=== PATIENT | female | born 1980 | race Caucasian/White ===

== ENCOUNTER 2022-05-09 18:01 | Inpatient (IN) | payer MEDICAID, SELFPAY ==
[2022-05-09] VITALS (7 sets, daily range): BP systolic 125–141; BP diastolic 74–82; PULSE 68–89; RESP 16; TEMP 36.6; O2SAT 98; BMI 37.5
--- NOTE | 2022-05-09 19:39 | PM.OBHPLI ---
OB - H&P: HPI Labor/Induction History of Present Illness Time Seen by Provider: 19:39 Date Seen: 05/09/22 Chief Complaint: The patient is a 41 year old 4 para 3 at 38+0 weeks gestation by 13w US, who presents for IOL for chronic hypertension. Chief complaint: Induction for Chronic HTN Narrative: Isabelle Bedoya is a 41 year old female 4 para 3 at 38+0 weeks gestation by 13w US, who presents for IOL for chronic hypertension. Blood pressures have been well controlled throughout on labetalol. also complicated by AMA. Patient had a normal Level 2 US at 22 weeks. NIPT was low risk. Most recent growth US showed EFW 73rd percentile at 36 weeks. She had normal pre-eclampsia labs most recently 05/02/22. Today she c/o cough present for a few days. No significant congestion or sore throat. No fever/chills/sweats. Labs Blood type: O (+) positive Rubella: immune RPR/VDLR: nonreactive GBS status: negative HBsAG: negative Review of Systems Status of ROS: Reports: 10 or more systems reviewed and unremarkable except as noted in History and below Meds Home Medications and Allergies Home Medications Medication Instructions Recorded Confirmed Type labetalol 100 mg tablet mg 05/09/22 History Allergies Allergy/AdvReac Type Severity Reaction Status Date / Time No Known Drug Allergies Allergy Verified 05/09/22 19:54 OB - H&P: Exam Physical Exam: Vital signs: Temp Pulse Resp BP Pulse Ox 98 F 79 16 125/80 98 05/09/22 18:20 05/09/22 19:37 05/09/22 18:20 05/09/22 19:37 05/09/22 18:22 Constitutional: Constitutional: no acute distress Comments: Alert, oriented and appropriate. Routine HEENT Exam: Head: Present atraumatic and normocephalic Eye: Absent conjunctival injection ENT: Present mucous membranes moist, normal external ear exam and nares patent Comments: Eyes without conjugate movement. Patient baseline. Routine Neck Exam: Comments: Supple. Routine Respiratory Exam: Respiratory: Present CTA bilaterally; Absent crackles, rales, rhonchi or respiratory distress Comments: Occasional cough. Routine Cardiovascular Exam: Cardiovascular: RRR Comments: No murmur, rub or extra heart sounds. Detailed Abdominal Exam: Comments: Gravid. Soft, non-tender. Detailed Labor and Delivery Exam: Patient Gravid: yes Dilation (cm): 2 Effacement (%): 70 Cervix position: posterior Consistency: medium Contraction duration (sec): 0 Fetus (Single): Station: -3 Heart Rate Baseline: 135 Monitor Accelerations: Present Monitor Decelerations: None Fourdrinier Machine Operator Variability: Moderate (6-25) Routine Extremities Exam: Extremities: Present full ROM, normal capillary refill and normal inspection; Absent pedal edema Routine Skin Exam: Present intact; Absent rash Routine Neurological Exam: Present alert and oriented X3 Comments: Grossly normal strength and sensation. No focal deficits. Routine Psychiatric Exam: Present normal affect OB - Problem Based A/P Additional Plan (1) Term : Status: Acute Plan: - IOL for chronic hypertension. Cook catheter placed. Initiate pitocin at midnight. (2) Chronic hypertension affecting : Status: Acute Plan: - Continue labetalol - BPs well-controlled throughout . Normal today - Normal pre-eclampsia labs on 05/02/22. Repeat if elevated blood pressures. (3) AMA (advanced maternal age) multigravida 35+: Status: Acute
[2022-05-09 20:26] LABS: SARS PCR* Negative SARS-CoV-2 (Negative)
--- NOTE | 2022-05-09 22:08 | PM.OBPNL ---
Subjective Time Seen by Provider: 22:08 Date Seen: 05/09/22 Narrative: I was called in to evaluate the patient as RN noticed skinny vaginal bleeding with the cook catheter. Noted on the patient's pad. No active bleeding. Upon my arrival, patient notes low abdominal and back pain with contractions; no pain between contractions. No vaginal pain. Objective Exam: GEN: Well-appearing adult female. Alert, oriented and appropriate. Stopping to breathe during contractions. Abdomen: Soft between contractions, non-tender. Vital Signs: Last Vital Signs Temp 98 F 05/09/22 19:37 Pulse 72 05/09/22 21:35 Resp 16 05/09/22 19:37 BP 134/80 05/09/22 21:35 Pulse Ox 98 05/09/22 18:22 Pelvic Exam Dilation (cm): 3 Effacement (%): 80 Station: -3 Contractions Contraction Frequency: Q 3-5 mins Assessment Station: -3 Heart Rate Baseline: 135 Mcfp Variability: Moderate (6-25) Monitor Accelerations: Present Monitor Decelerations: None Plan Plan: Cook catheter was removed. A small clot was noted at the base of the interior balloon. Given Aguilera score is now 8, proceed with pitocin induction.
[2022-05-09] MEDS: LACTATED RINGERS 1000 ML 1,000 ML 125 ML IV (22:57)
[2022-05-09] MEDS: OXYTOCIN 30 unit/500 ML in NS 30 UNIT/500 ML BAG IVPB (22:59)
[2022-05-09] MEDS: LABETALOL HCL 100 MG TABLET PO (23:09)
[2022-05-09] MEDS: hydrOXYzine pamoate 25 MG CAPSULE 100 MG PO (23:13)
[2022-05-09] MEDS: MORPHINE 10 MG/ML inj IM (23:14)
[2022-05-09 23:26] LABS: Basophils Absolute Auto 0.02 K/uL (0.00-0.30); Basophils Percent Auto 0.2 % (0.0-3.0); Eosinophils Absolute Auto 0.06 K/uL (0.00-0.50); Eosinophils Percent Auto 0.7 % (0.0-7.0); Hematocrit 35.1 % (33.0-51.0); Immature Granulocytes Abs Auto 0.02 K/uL (0.00-0.30); Immature Granulocytes Pct Auto 0.2 %; Lymphocytes Absolute Auto 2.27 K/uL (0.90-2.90); Lymphocytes Percent Auto 26.9 % (20-44); Mean Corpuscular HGB Conc 34 gm/dL (32-36); Mean Corpuscular Hemoglobin 31 pg (26-34); Mean Corpuscular Volume 91 fL (80-100); Monocytes Percent Auto 7.3 % (0.0-11.0); Neutrophils Absolute Auto 5.45 K/uL (1.7-7.0); Neutrophils Percent Auto 64.7 % (42.0-72.0); Platelet Count* 293 K/uL (140-440); RDW Coefficient of Variation % 12.9 % (11.5-15.5); Red Blood Count 3.84 m/uL (4.00-5.20); White Blood Count* 8.44 K/uL (4.50-11.00)
[2022-05-09 23:32] LABS: Slide Review Reflex No
[2022-05-10] VITALS (60 sets, daily range): BP systolic 104–187; BP diastolic 55–104; PULSE 66–86; RESP 16–18; TEMP 36.6–37.2; O2SAT 96–99
[2022-05-10] MEDS: LIDOCAINE 2% (PF) 5 ML VIAL EPIDURAL (05:05)
[2022-05-10] MEDS: ROPIVACAINE 0.2% 100 ml 100 ML 12 MG EPIDURAL (05:05)
--- NOTE | 2022-05-10 05:11 | P.ANBPRC_ITS ---
[facility] Social History Smoking Status: Never smoker Meds Home Medications and Allergies Home Medications Medication Instructions Recorded Confirmed Type labetalol 100 mg tablet 100 mg PO Q12H 05/09/22 05/09/22 History Allergies Allergy/AdvReac Type Severity Reaction Status Date / Time No Known Drug Allergies Allergy Verified 05/09/22 19:54 Results Labs Labs: Laboratory Results - last 24 hr 05/09/22 05/09/22 05/09/22 19:23 22:55 22:55 WBC 8.44 RBC 3.84 L Hgb 12.0 Hct 35.1 MCV 91 MCH 31 MCHC 34 RDW Coeff of Dilshad 12.9 Plt Count 293 Neut % (Auto) 64.7 Lymph % (Auto) 26.9 [place] % (Auto) 7.3 Eos % (Auto) 0.7 Baso % (Auto) 0.2 Neut # (Auto) 5.45 Lymph # (Auto) 2.27 [place] # (Auto) 0.60 Eos # (Auto) 0.06 Baso # (Auto) 0.02 Abs Immat Gran (auto) 0.02 Imm/Tot Granulo (auto) 0.2 SARS-CoV-2 (PCR) Negative SARS-CoV-2 Blood Type O Positive Antibody Screen NEGATIVE Vital Signs Vital Signs: Last Vital Signs Temp 98.5 F 05/10/22 02:13 Pulse 68 05/10/22 05:11 Resp 16 05/10/22 02:13 BP 152/91 H 05/10/22 05:11 Pulse Ox 98 05/10/22 05:10 Weight: 96.162 kg Height: 160.02 cm Anesthesia Procedures Epidural Insertion Patient Location: OB Start Time: 04:40 Stop Time: 05:15 Start Date: 05/10/22 Stop Date: 05/10/22 Reason for Block: primary anesthetic Patient Position: sitting Performed By: Phillip Cloud Preanesthetic Checklist: IV checked, risks and benefits discussed, surgical consent, monitors and equipment checked, pre-op evaluation, timeout performed and anesthesia consent Prep: chlorhexidine gluconate Monitoring: blood pressure monitoring, cardiac rehabilitation specialist, continuous pulse oximetry and heart rate Approach: midline Vertebral Space: lumbar (1-5) Needle Type: Tuohy needle Injection Technique: continuous catheter (catheter) Needle gauge: 17 Needle Length (cm): 10 cm Needle Insertion Depth (cm): 5 Catheter Gauge: 19 Catheter Type: multi-orifice Catheter at skin depth (cm): 10 Test Dose Result: negative and lidocaine 1.5% with epinephrine 1 to 200,000
[2022-05-10] MEDS: LACTATED RINGERS 1000 ML 1,000 ML 999 ML IV (05:12)
[2022-05-10] MEDS: LACTATED RINGERS 1000 ML 1,000 ML 125 ML IV (08:52)
[2022-05-10] MEDS: LABETALOL HCL 100 MG TABLET PO ×2 (10:10→21:17)
[2022-05-10] MEDS: LIDOCAINE 1% MDV 20 ML INJECTION (11:15)
--- NOTE | 2022-05-10 11:50 | PM.OBPRCVD ---
Procedure Delivery date: 05/10/22 Procedure Done: Global Procedure Details: Patient presented for IOL for chronic hypertension. Initially cervix was 2/70/-3. Cook catheter was placed at 1915. Subsequently removed at 2157 due to skinny vaginal bleeding. Some oozing, suspected cervical source, after removal, eventually stopped without addtional intervention. Found to be 3 cm after cook removal, transitioned to IV pitocin. Patient requested epidural, and this was placed at 0500 on 05/10/22. Patient slept. Found to be complete with bulging bag at 1000. AROM for clear fluid at 1050. Pushing began 1054. At 1108 vigorous female infant was delivered in the SACHI position and placed on the maternal chest. There was active management of the third stage with pitocin. Placental delivered spontaneously at 1113, 3V and intact. Second degree perineal and periurethral tear were repaired with 3-0 vicryl suture. APGARS 8 and 9. Mother and baby resting comfortably. OB Vag Delivery Procedures Additional Procedures Cook Catheter Insertion: Yes Laceration Repair: Yes
[2022-05-10] MEDS: IBUPROFEN 600 MG TABLET PO ×2 (12:58→21:16)
[2022-05-10] MEDS: SODIUM CHLORIDE 0.9 % (FLUSH) 10 ML SYRINGE IVF (12:58)
[2022-05-10] MEDS: ACETAMINOPHEN 500 MG TABLET 1000 MG PO (18:10)
[2022-05-11] MEDS: ACETAMINOPHEN 500 MG TABLET 1000 MG PO (00:31)
[2022-05-11 00:41] VITALS: BP 113/69; PULSE 66; RESP 16; TEMP 36.6; O2SAT 96
[2022-05-11 04:00] VITALS: BP 125/79; PULSE 55; RESP 16; TEMP 36.3; O2SAT 96
[2022-05-11 04:09] VITALS: TEMP 36.3
[2022-05-11] MEDS: IBUPROFEN 600 MG TABLET PO (04:09)
[2022-05-11 07:31] LABS: Hemoglobin* 10.9 gm/dL (12.0-16.0)
[2022-05-11 07:55] VITALS: BP 118/77; PULSE 63; RESP 14; TEMP 36.6; O2SAT 97
[2022-05-11] MEDS: DOCUSATE SODIUM 100 MG CAPSULE PO (08:43)
[2022-05-11] MEDS: LABETALOL HCL 100 MG TABLET PO (08:43)
--- NOTE | 2022-05-11 10:54 | PM.OBDSVD1 ---
DS: Providers Provider Time Seen by Provider: 10:54 Date Seen: 05/11/22 Date of admission: 05/09/22 18:01 Primary care physician: Elsy Mcallister MD Admitting Clinician: Elsy Mcallister MD Attending Physician on discharge: Elsy Mcallister MD Date of Discharge: 05/11/22 DS: Diagnosis Discharge Diagnosis (1) Term : Status: Acute (2) Chronic hypertension affecting : Status: Acute Problem details: - blood pressures have been well controlled. Continue labetalol 100 mg b.i.d. while . (3) AMA (advanced maternal age) multigravida 35+: Status: Acute Exam Narrative: Exam Narrative: General: Well-appearing adult female. Alert, oriented and appropriate. No acute distress. HEENT: Non conjugated gaze, patient baseline. No conjunctival injection. No nasal discharge. Mucous membranes moist. Neck: Supple. Cardiovascular: Regular rate and rhythm, no rubs, murmurs or extra heart sounds. Pulmonary: Clear to auscultation bilaterally. No wheezes, rales or rhonchi. Cough observed. Abdomen: Soft, nontender, nondistended. Uterine fundus palpated at the umbilicus. Extremities: Warm and well perfused. No lower extremity edema. Neuro: Grossly normal strength and sensation. No focal deficits. Psych: Normal affect. Const: Vital Signs, click to edit/add: Vital Signs - 24 hr 05/10/22 10:57 05/10/22 11:26 05/10/22 11:41 Temperature Pulse Rate 83 83 82 Pulse Rate [Left B lood Pressure Cuff ] Pulse Rate [Pulse Oximeter] Respiratory Rate Blood Pressure 141/85 H 144/79 H 132/72 Blood Pressure [Le ft Arm] Blood Pressure [Ri ght Arm] Pulse Oximetry Oxygen Delivery Me thod 05/10/22 11:56 05/10/22 12:11 05/10/22 12:26 Temperature Pulse Rate 77 71 71 Pulse Rate [Left B lood Pressure Cuff ] Pulse Rate [Pulse Oximeter] Respiratory Rate Blood Pressure 148/77 H 139/74 151/80 H Blood Pressure [Le ft Arm] Blood Pressure [Ri ght Arm] Pulse Oximetry Oxygen Delivery Me thod 05/10/22 12:41 05/10/22 12:56 05/10/22 13:11 Temperature Pulse Rate 67 81 71 Pulse Rate [Left B lood Pressure Cuff ] Pulse Rate [Pulse Oximeter] Respiratory Rate Blood Pressure 148/81 H 147/90 H 156/85 H Blood Pressure [Le ft Arm] Blood Pressure [Ri ght Arm] Pulse Oximetry Oxygen Delivery Me thod 05/10/22 13:12 05/10/22 13:26 05/10/22 12:15 Temperature 98.4 F Pulse Rate 68 71 Pulse Rate [Left B lood Pressure Cuff ] Pulse Rate [Pulse Oximeter] Respiratory Rate Blood Pressure 121/59 L 124/63 Blood Pressure [Le ft Arm] Blood Pressure [Ri ght Arm] Pulse Oximetry Oxygen Delivery Me thod 05/10/22 13:30 05/10/22 11:30 05/10/22 18:10 Temperature 98.5 F 98.5 F 98.6 F Pulse Rate Pulse Rate [Left B lood Pressure Cuff ] Pulse Rate [Pulse Oximeter] Respiratory Rate 16 Blood Pressure Blood Pressure [Le ft Arm] Blood Pressure [Ri ght Arm] Pulse Oximetry Oxygen Delivery Me thod 05/10/22 18:17 05/10/22 21:13 05/11/22 00:41 Temperature 98.3 F 97.8 F Pulse Rate Pulse Rate [Left B lood Pressure Cuff ] 72 66 66 Pulse Rate [Pulse Oximeter] Respiratory Rate 18 18 16 Blood Pressure Blood Pressure [Le ft Arm] 135/81 129/61 113/69 Blood Pressure [Ri ght Arm] Pulse Oximetry 96 96 96 Oxygen Delivery Me thod Room Air Room Air Room Air 05/11/22 04:09 05/11/22 04:00 05/11/22 07:55 Temperature 97.4 F L 97.4 F L 97.9 F Pulse Rate Pulse Rate [Left B lood Pressure Cuff ] 55 L Pulse Rate [Pulse Oximeter] 63 Respiratory Rate 16 14 Blood Pressure Blood Pressure [Le ft Arm] 118/77 Blood Pressure [Ri ght Arm] 125/79 Pulse Oximetry 96 97 Oxygen Delivery Me thod Room Air Room Air OB - DS: Summary Hospital Course Hospital Course: The patient is a 41 year old G 4 now P4 at 38+0 weeks gestation that was admitted to the Center on 05/09/22 for IOL for chronic hypertension during . She had an uncomplicted vaginal delivery. She delivered a viable female infant. She is breast feeding. the patient has done well. Peripartum Data delivery method: Vaginal Laceration description: Perineal - 2nd Degree (and periurethral) complications: none [place] Infant Gender: Female Status at Discharge Functional status at discharge: independent ambulation Overall status at discharge: patient is back to baseline Time Spent with Patient Time attestation: Total time spent providing and/or coordinating discharge services: Discharge Plan Discharge Disposition: Home, Self-Care Date of Admission: 05/09/22 18:01 Attending Provider on Discharge: Elsy Mcallister Primary Care Provider: Elsy Mcallister I Condition: Stable Anticipated Discharge Date/Time: 05/11/22 10:51 Discharge Medications: New acetaminophen 500 mg Tablet 1,000 mg PO Q6H PRN (Reason: pain/fever) 30 Days Qty: 30 0RF docusate sodium 100 mg Capsule 100 mg PO DAILY 30 Days Qty: 30 0RF ibuprofen 600 mg Tablet 600 mg PO Q6H PRN30 Days Qty: 30 0RF Continued labetalol 100 mg tablet 100 mg PO Q12H Discharge Orders: Discharge Order (Routine); Ordered 05/11/22 Ordered By: Elsy Mcallister Activity Level: Activity as Tolerated Discharge Diet: Regular Follow Up Appointments: Elsy Mcallister MD [Primary Care Provider] - Forms: [employer] Info Instructions Discharge Comments: Follow-up with Dr. Elsy Mcallister at [facility] for 6 week post- visit.
[2022-05-11 11:30] VITALS: BP 125/78; PULSE 65; RESP 16; TEMP 36.4; O2SAT 98
== END 2022-05-11 13:25 | disposition home or self-care (01) | DRG 807 ==
PROVIDERS: Admitting Provider Family Medicine; PCP Family Medicine; Visit Provider Family Medicine
DX: O10.92 Unspecified pre-existing hypertension complicating childbirth (principal); Z37.0 Single live birth; O67.8 Other intrapartum hemorrhage; O70.1 Second degree perineal laceration during delivery; Z3A.38 38 weeks gestation of pregnancy
CPT/HCPCS: 01967; 36415; 59200; 85018; 85025; 86850; 86900; 86901; 87635; A9270; J2270; J2795; J7120

== ENCOUNTER 2022-06-10 06:25 | Day surgery (SDC) | payer MEDICAID, SELFPAY ==
[2022-06-10] VITALS (13 sets, daily range): BP systolic 136–159; BP diastolic 76–98; PULSE 60–84; RESP 14–16; TEMP 36.2–36.7; O2SAT 95–98; BMI 35.1
[2022-06-10 06:54] LABS: Ur HCG Qualitative* Negative (Negative)
[2022-06-10] MEDS: SODIUM CHLORIDE 0.9 % (FLUSH) 10 ML SYRINGE IVF (07:00)
[2022-06-10] MEDS: LACTATED RINGERS 1000 ML 1,000 ML 100 ML IV (07:00)
--- NOTE | 2022-06-10 07:06 | SUR.PREOP ---
HOME COVID TEST NEGATIVE DONE 06/09/22.
[2022-06-10 07:19] LABS: Hemoglobin* 12.9 gm/dL (12.0-16.0)
--- NOTE | 2022-06-10 09:58 | PM.PROC ---
Procedure Note Time Seen by Provider: 09:58 Date Seen: 06/10/22 Date of procedure: 06/10/22 Will [facility] bill your pro fee for this procedure?: Yes Procedure: Preoperative diagnosis: 34-year-old with undesired fertility Postoperative diagnosis: Same. Procedure: Laparoscopic bilateral salpingectomy Anesthesia: General endotracheal, local Surgeon: Katie Blandon MD Supervisor Pressing Department: JENNIFER Zhong EBL: 50 mL Urine output: 500 mL clear urine IVF: 1400 ml Specimen: Left and right fallopian tubes to pathology. Findings: On exam under anesthesia: The uterus was anteverted, less than 10week size, mobile, without masses or nodularity palpable. Adnexa were without mass or fullness bilaterally. The uterus sounded to 10 cm. On laparoscopy: The uterus, bilateral fallopian tubes and ovaries all appeared normal. liver and gallbladder appeared normal Procedure: Isabelle was taken to the operating room where general anesthetic was found to be adequate. She was placed in the dorsal lithotomy position and an exam under anesthesia was performed with findings stated above. She was then prepped and draped in a normal sterile manner. A Kyle catheter was then placed. A bivalve speculum was then placed in the vaginal canal to visualize the cervix. The anterior lip of the cervix was grasped with an a long Allis clamp. The cervix was dilated to Hegar 6. Uterus was sounded to [] cm. A Rami uterine manipulator was then placed. Attention was then turned to performing the laparoscopic portion of the procedure. All incisions were injected with 0.5% Marcaine prior to incision. A vertical 5 mm infraumbilical, incision, was made and a 5 mm trocar placed under direct visualization with the laparoscope. The abdomen was then insufflated with carbon dioxide gas to a pressure of 15 mm of mercury. To bilateral lower quadrant trocars were then placed under direct visualization. Both were placed approximately 3-4 finger breaths medial to the ischial crests. Both trocars were 5 mm in diameter.. A diagnostic laparoscopy was then performed with findings stated above. The left fallopian tube was grasped with a sliding grasper. The left fallopian tube was removed from the broad ligament using the Halo dissecting forceps starting at the fimbriated end of the tube. Sequential pedicles were then formed to the level of the cornua. The tube was then removed at the cornua and removed from the abdomen through the 11 mm port. The right fallopian tube was removed in a similar manner. Excellent hemostasis was noted of all pedicles. The trocars were then removed under direct visualization. The CO2 gas was allowed to escape the infraumbilical port prior to its removal. All incisions were reapproximated using 4-0 Monocryl in a running subcuticular manner. LiquiBand skin adhesive was then applied and adhesive dressings applied over each incision. The uterine manipulator and Kyle catheter were removed. The patient tolerated this procedure well. Sponge, lap and instrument counts were correct x2 at the end of the procedure and the patient was taken to the recovery area in stable condition. Surgeon: Katie Blandon MD
--- NOTE | 2022-06-10 10:10 | W.ANESCHARGE ---
Anesthesia Charges Start Date/Time Anesthesia Start Date: 06/10/22 Anesthesia Start Time: 08:41 Stop Date/Time Anesthesia Stop Date: 06/10/22 Anesthesia Stop Time: 10:07 Summary Emergency: No
--- NOTE | 2022-06-10 11:07 | SUR.PHASEII ---
[facility] FOR ALL ADMISSION, SIGNING OF CONSENT, AND DISCHARGE INFORMATION.
[2022-06-10] MEDS: OXYCODONE 5 MG TABLET PO (11:24)
== END 2022-06-10 12:20 | disposition home or self-care (01) ==
PROVIDERS: PCP Family Medicine; Visit Provider Obstetrics & Gynecology
PROC: (CPT 58661; principal; 2022-06-10 09:00)
DX: Z30.2 Encounter for sterilization (principal)
CPT/HCPCS: 58661; 00840; 36415; 81025; 85018; 86850; 86900; 86901; 88302; T1013; A9270; J0330; J1100; J1885; J2250; J2405; J2704; J3010; J7120